=== PATIENT | male | born 1945 | race Caucasian/White ===

== ENCOUNTER 2017-03-31 14:06 | Observation (INO) | payer OTHER, MEDICARE ==
[~2017-03-31] VITALS: Ht 167.6 cm; Wt 100.6 kg
[~2017-03-31 14:06] MED LIST: ACTOS45 MG PO; ALBUTEROL2.5 MG/3 M IH; ASPIR-LOW81 MG PO; ASPIRIN81 M2 PO; AUGMENTIN875 MG PO; BENAZEPRIL HCL20 MG PO; CEFTIN500 MG PO; DUONEB 2.5-0.5 M3 ML IH; FERROUS SULFAT325 MG PO; GLIMEPIRIDE2 MG PO; GLIMEPIRIDE4 MG PO; IRON325 M1 PO; LEVOFLOXACIN500 MG PO; METFORMIN HCL1000 MG PO; METFORMIN HCL500 MG PO; PANTOPRAZOLE SO40 MG PO; PIOGLITAZONE HC45 MG PO; PLAVIX75 MG PO; PREDNISONE10 MG PO; PROMETHAZI6.25 MG/5 PO; PROTONIX40 MG PO; SIMVASTATIN40 MG PO; TYLENOL EXTRA500 MG PO; TYLENOL REGULA325 MG PO; VENTOLIN HFA18 GM IH
[2017-03-31 14:46] LABS: HEMATOCRIT 39.2 % (38.0-50.0); MCH 31.7 PG (29.0-34.0); MCHC 33.4 G/DL (30.0-36.0); MCV 94.9 FL (86-99); MEAN PLAT.VOLUME 9.6 uM^3 (9.0-12.4); PLATELET COUNT 142 K/uL (156-360); RBC DIS.WIDTH-CV 13.6 % (11.8-14.6); RBC DIS.WIDTH-SD 47.6 % (39-53); RED BLOOD COUNT 4.13 M/uL (4.00-5.50); WHITE BLOOD COUNT 6.2 K/uL (4.1-10.2)
[2017-03-31 14:52] LABS: PROTHROMBIN TIME 11.8 SEC (10.2-12.9)
[2017-03-31 14:55] LABS: CHLORIDE 102 mEq/L (99-109); PTT 32.6 SEC (25-37); SODIUM 137 mEq/L (136-147)
[2017-03-31 14:56] LABS: GLUCOSE 112 mg/dL (70-99)
[2017-03-31 14:58] LABS: ANION GAP 11 MEQ/L (2-14)
[2017-03-31 15:00] LABS: GFR ESTIMATE (CALCULATED) > 59 mL/min/
[2017-03-31 15:01] LABS: UREA NITROGEN (BUN) 17 mg/dL (9-23)
[2017-03-31 15:07] LABS: TROP-I INTERPRETATION NEGATIVE; TROPONIN-I 0.22 ng/mL (0.0-0.30)
[2017-03-31 21:27] LABS: TROP-I INTERPRETATION NEGATIVE; TROPONIN-I 0.23 ng/mL (0.0-0.30)
[2017-03-31] MEDS ORDERED: FUROSEMIDE20 MG PO (21:46)
[2017-03-31] MEDS ORDERED: PIOGLITAZONE HC45 MG PO (21:47)
[2017-03-31] MEDS ORDERED: PANTOPRAZOLE SO40 MG PO (21:48)
[2017-03-31 22:00] VITALS: BP 119/74
[2017-03-31 23:35] VITALS: BP 91/43
[2017-04-01 00:03] LABS: POINT-OF-CARE METER ID UU14100415
[2017-04-01 03:58] VITALS: BP 104/52
[2017-04-01 05:40] LABS: HEMATOCRIT 34.4 % (38.0-50.0); MCH 31.1 PG (29.0-34.0); MCHC 33.1 G/DL (30.0-36.0); MEAN PLAT.VOLUME 9.4 uM^3 (9.0-12.4); PLATELET COUNT 117 K/uL (156-360); RBC DIS.WIDTH-CV 13.7 % (11.8-14.6); RBC DIS.WIDTH-SD 47.3 % (39-53); RED BLOOD COUNT 3.66 M/uL (4.00-5.50); WHITE BLOOD COUNT 4.8 K/uL (4.1-10.2)
[2017-04-01 05:55] LABS: CHLORIDE 105 mEq/L (99-109); POTASSIUM 4.7 mEq/L (3.7-5.4); SODIUM 138 mEq/L (136-147)
[2017-04-01 05:57] LABS: GLUCOSE 90 mg/dL (70-99); TROP-I INTERPRETATION NEGATIVE; TROPONIN-I 0.19 ng/mL (0.0-0.30)
[2017-04-01 05:58] LABS: ANION GAP 10 MEQ/L (2-14)
[2017-04-01 06:01] LABS: GFR ESTIMATE (CALCULATED) > 59 mL/min/
[2017-04-01 06:02] LABS: UREA NITROGEN (BUN) 22 mg/dL (9-23)
[2017-04-01 07:19] LABS: POINT-OF-CARE METER ID UU14100415
[2017-04-01 07:52] VITALS: BP 104/52
[2017-04-01 12:02] VITALS: BP 104/52
[2017-04-01 12:37] LABS: POINT-OF-CARE METER ID UU14100415
[2017-04-01 16:57] VITALS: BP 104/52
[2017-04-01 17:03] LABS: POINT-OF-CARE METER ID UU14100415
[2017-04-01 17:11] LABS: IRON 75 MCG/DL (35-150)
[2017-04-01 17:33] LABS: FERRITIN 68 NG/ML (22-322)
[2017-04-01 20:34] VITALS: BP 129/78
[2017-04-01 21:06] LABS: POINT-OF-CARE METER ID UU13113700
[2017-04-01 23:59] VITALS: BP 122/49
[2017-04-02 04:37] VITALS: BP 105/54
[2017-04-02 06:20] LABS: HEMATOCRIT 37.5 % (38.0-50.0); MCH 31.9 PG (29.0-34.0); MCHC 33.6 G/DL (30.0-36.0); MCV 94.9 FL (86-99); MEAN PLAT.VOLUME 9.7 uM^3 (9.0-12.4); PLATELET COUNT 119 K/uL (156-360); RBC DIS.WIDTH-CV 13.7 % (11.8-14.6); RBC DIS.WIDTH-SD 47.8 % (39-53); RED BLOOD COUNT 3.95 M/uL (4.00-5.50)
[2017-04-02 06:32] LABS: CHLORIDE 105 MEQ/L (99-109); POTASSIUM 4.7 MEQ/L (3.7-5.4); SODIUM 138 MEQ/L (136-147)
[2017-04-02 08:08] LABS: ANION GAP 6 MEQ/L (2-14); GFR ESTIMATE (CALCULATED) > 59 mL/min/; GLUCOSE 132 mg/dL (70-99); MAGNESIUM 1.8 mg/dl (1.3-2.7); SAMPLE HEMOLYSIS CHECK 0; SAMPLE ICTERIC CHECK 0; SAMPLE LIPEMIA CHECK 0; UREA NITROGEN (BUN) 20 mg/dL (9-23)
[2017-04-02 08:47] LABS: POINT-OF-CARE METER ID UU13113700
[2017-04-02 09:02] VITALS: BP 121/75
== END 2017-04-02 11:59 | disposition home or self-care (01) ==
LOC: EME 14:06 → EDOF 19:17 → CANRESERV 19:27 → ENRESERV 19:27 → EDOF 04-01 00:53 → ENRESERV 04-01 17:51 → 5WEST 04-01 20:15 → ENPENDDIS 04-02 11:38 → 5WEST 04-02 11:59
PROVIDERS: Emergency Medicine; Hospitalist; Internal Medicine
DX: R07.9 Chest pain, unspecified (principal); I25.10 Atherosclerotic heart disease of native coronary artery without angina pectoris; Z95.1 Presence of aortocoronary bypass graft; Z95.2 Presence of prosthetic heart valve; D69.6 Thrombocytopenia, unspecified; R06.81 Apnea, not elsewhere classified; D64.9 Anemia, unspecified; I10 Essential (primary) hypertension; E11.9 Type 2 diabetes mellitus without complications; K22.70 Barrett's esophagus without dysplasia; Z79.84 Long term (current) use of oral hypoglycemic drugs; Z79.82 Long term (current) use of aspirin; Z95.828 Presence of other vascular implants and grafts; E78.5 Hyperlipidemia, unspecified; Z87.891 Personal history of nicotine dependence; K21.9 Gastro-esophageal reflux disease without esophagitis; Z87.11 Personal history of peptic ulcer disease; Z88.6 Allergy status to analgesic agent; Z66 Do not resuscitate
CPT/HCPCS: 36415; 71020; 80048; 80053; 80061; 82272; 82607; 82728; 82747 90; 82948; 83036; 83540; 83735; 84484; 85027; 85610; 85730; 93005; 94799; 99202; 99281; 99285; G0378; J1644; J1815